=== PATIENT | male | born 1970 | race Caucasian/White ===

== ENCOUNTER 2021-02-27 13:22 | Emergency (ER) | payer OTHER, SELFPAY ==
[2021-02-27] VITALS (13 sets, daily range): BP systolic 118–137; BP diastolic 65–81; PULSE 47–72; RESP 11–26; TEMP 36.6; O2SAT 94–100
--- NOTE | 2021-02-27 13:31 | W.ED.GENAD ---
Discharge Plan Disposition Patient Disposition: HOME Condition: Improving Discharge Details Clinical Impression: Ureteral colic Primary Care Provider: Reddy Mccarty ED Provider: João Florence Home Meds and New Rx's Prescriptions: No Action No Known Home Meds RF: 0 Discharge Instructions Instructions: Abdominal Pain (ED), Renal Colic (ED) Additional Instructions: Home to rest today. Small, frequent sips of fluid so that you maintain hydration Tylenol and ibuprofen as needed for pain. Return to the ER for any acute concerns. Medical Decision Making 51-year-old male presents via EMS. He had the abrupt onset of left lower quadrant abdominal pain that radiates to left flank at work. It was moderate to severe, associated with nausea and a single episode of emesis. Patient had rapid de-escalation of the pain well on route to the hospital in an ambulance. He is now improved and arrives afebrile with pulse of 79, blood pressure within normal limits. Differential diagnosis includes renal colic. Patient had IV access established, fluid bolus initiated, labs obtained and he is referred for CT images. Labs showed elevated white blood cell count of 15 likely from stress demargination. Hematocrit 41, platelets 215. Chemistries reassuring, BUN 18, creatinine 1.1, note of AST 54, ALT 40, hematuria present without evidence of infection. CT images revealed mild dilatation of the left ureter. No other stones seen. Patient improved. Most likely he did pass his first kidney stone. I discussed with him his findings and improvement. He is stable and appropriate for discharge home at this time. HPI General Mode of arrival: EMS. Date/Time Provider Initiated Documentation: 02/27/21 14:29. Limitations to Documentation: no limitations. Information obtained by: patient and EMS. History of Present Illness 51 year old M presents to the emergency department with the chief complaint of Left flank pain and nausea, described as moderate, and is localized to the abdomen and left. Patient reports radiation to back. Patient started experiencing this minute(s) and it has been now resolved. No relieving factors improve symptom(s), No exacerbating factors reported . Patient notes nausea/vomiting. Patient did receive the following treatments prior to arrival, other (Antiemetics in the ambulance) Related Data Home Medications Medication Instructions Recorded Confirmed Unknown [No Known Home Meds] 02/27/21 02/27/21 Allergies Allergy/AdvReac Type Severity Reaction Status Date / Time shellfish derived Allergy Unverified 02/27/21 13:25 General Stated Complaint: Abd Prob DEVIN: 3 Review of Systems Narrative: No recent illness. Otherwise healthy man. [facility] Social History Smoking risk assessment performed?: No Exam Narrative Exam Narrative: GEN: awake, alert, oriented 3. Pleasant, well groomed, interactive. HEAD: Normocephalic, atraumatic ENT: Mucous membranes moist, oropharynx unremarkable, External ear exam unremarkable EYES: PERRL, EOMI NECK: Full ROM, no DELORIS, no menigismus CHEST/RESP: Nontender, clear to auscultation bilateral, no wheeze/rhonchi/rales CARDIOVASCULAR: RRR, no murmur, rub forest. 2+ Rad pulse bilateral ABDOMEN: Soft, minimal left lower quadrant tenderness to palpation without rebound, no mass. +Bowel sounds EXT: Full ROM, no edema, no rash Neuro: Grossly normal neurologic exam, conversant, interactive. Psych: Speech fluent, thoughts congruent, affect normal Course Vital Signs Vital signs: Vital Signs Temperature 36.6 C 02/27/21 13:22 Pulse 59 L 02/27/21 13:22 Respiratory Rate 18 02/27/21 13:22 Blood Pressure 118/65 02/27/21 13:22 Pulse Oximetry 100 02/27/21 13:22 Temperature 36.6 C 02/27/21 13:22 Temperature Source Skin 02/27/21 13:22 Pulse 59 L 02/27/21 13:22 Respiratory Rate 18 02/27/21 13:22 Blood Pressure 118/65 02/27/21 13:22 Blood Pressure Position Supine 02/27/21 13:22 Pulse Oximetry 100 02/27/21 13:22 Oxygen Delivery Method Room Air 02/27/21 13:22 Oxygen Flow Rate 0 02/27/21 13:22 Pain Level 1 02/27/21 13:22
[2021-02-27] MEDS: Normal Saline 1,000 ML 1000 ML IV (13:52)
[2021-02-27 13:58] LABS: Abs Immature Grans 0.08 10^3/uL (0.0-0.06); Absolute Basophil Count 0.05 10^3/uL (0.0-0.2); Absolute Lymphocyte Count 1.49 10^3/uL (1.2-3.4); Absolute Monocyte Count 0.89 10^3/uL (0.1-0.8); Absolute Neutrophil Count 12.84 10^3/uL (1.2-6.7); Basophils % 0.3; Eosinophils % 1.9; HCT 41.6 % (40.0-50.0); HGB 14.4 g/dL (13.5-17.5); Immature Grans % 0.5; Lymphocytes % 9.5; MCH 30.2 pg (27.0-33.0); MCHC 34.6 % (32.0-36.0); MCV 87.2 fL (80-95); MPV 9.6 fL (8.0-11.0); Monocytes % 5.7; Neutrophils % 82.1; Nucleated RBC 0 %; Platelet Count 215 10^3/uL (130-400); RBC 4.77 10^6/uL (4.36-5.78); RDW 12.3 % (11.8-14.1); RDW-SD 39.2 fL; WBC 15.64 10^3/uL (4.4-10.8)
[2021-02-27 13:59] LABS: Bilirubin Negative (Negative); Blood Large (Negative); Clarity Clear (Clear); Glucose Negative (Negative); Ketones 40 mg/dL (Negative); Leukocyte Esterase Negative (Negative); Nitrite Negative (Negative); Specific Gravity 1.025 (1.005-1.025); Urobilinogen 0.2 EU/dL (Up TO 0.2)
[2021-02-27 14:08] LABS: ALT 40 U/L (16-63); AST 54 U/L (15-37); Albumin 3.8 g/dL (3.4-5.0); Alkaline Phosphatase 81 U/L (46-116); Anion Gap 11.3 mmol/L (3-11); BUN 18 mg/dL (7-18); Bilirubin, Total 0.5 mg/dL (0.2-1.0); CO2 23.7 mmol/L (21.0-32.0); CREATININE 1.1 mg/dL (0.70-1.30); Calcium 8.5 mg/dL (8.5-10.1); Chloride 105 mmol/L (98-107); Glucose 137 mg/dL (74-106); Potassium 3.6 mmol/L (3.5-5.1); Sodium 140 mmol/L (136-145); Total Protein 7.3 g/dL (6.4-8.2)
[2021-02-27 14:12] LABS: Bacteria Negative HPF (Negative); C & S Indicated? No; Casts Negative LPF (Negative); Crystals Negative HPF (Negative); Epithelial Cells Few HPF (Negative); Mucus Negative (Negative); RBC >50 HPF (0-2); WBC 0-2 HPF (0-5)
--- NOTE | 2021-02-27 14:30 | DI.CT_ITS ---
Exam(s) CT RENAL COLIC WO EXAM: CT RENAL COLIC WO CLINICAL HISTORY: L flank pain. TECHNIQUE: Imaging Protocol: Axial computed tomography images with coronal and sagittal reformatted images were created and reviewed. COMPARISON: No exams were available for comparison FINDINGS: ABDOMEN: Lung Bases: Bilateral basilar atelectasis. Liver: Normal density. No measurable mass. Gallbladder and biliary tract: No radiodense calculus or biliary ductal dilation. Pancreas: Normal density, no abnormal calcifications or inflammatory process. Spleen: Normal. Kidneys: Normal size, contour and axis.No radiodense stones or obstructive uropathy. There is mild d ilatation of the left ureter with mild infiltration surrounding the mid ureter. The possibility of a recently passed stone should be considered. Please correlate clinically. No masses seen. Adrenal glands: No mass is seen. Lymph nodes: Within normal limits. Abdominal Aorta: Abdominal portion non-dilated. PELVIS: Bladder:Symmetric distention, no gross wall thickening. Bowel: No obstruction or bowel wall thickening. Appendix is unremarkable. Peritoneal cavity: No ascites, collection or mesenteric inflammatory response. No free air. Reproductive organs: Within normal limits. Bones: Within normal limits. Soft Tissues: Within normal limits. IMPRESSION: Mild dilatation of the left ureter which may represent a recently passed stone or possibly, a non rad iopaque obstructing stone. No radiopaque stone is seen in the ureter or bladder. Results of this exam have been verbally communicated with provider. RADIATION DOSE DELIVERED: 789mGy.cm Total DLP DATA REPOSITORY: All CT scans at this facility are submitted to the National Radiology Data Registry (NRDR) Dose Index Registry (DIR) with the [employer] ([employer]). RADIATION OPTIMIZATION: All CT scans at this facility use at least one of these dose optimization te chniques: automated exposure control; mA and/or kV adjustment per patient size (includes targeted exa ms where dose is matched to clinical indication); or iterative reconstruction.
== END 2021-02-27 15:23 | disposition home or self-care (01) ==
PROVIDERS: Emergency Provider Emergency Medicine; PCP Specialist/Technologist Athletic Trainer
DX: N23 Unspecified renal colic (principal)
CPT/HCPCS: 36415; 80053; 96360; 99284; 74176; 81003; 81015; 85025; 99283